=== PATIENT | female | born 1980 | race Caucasian/White ===

== ENCOUNTER 2021-02-14 20:17 | Inpatient (IN) | payer OTHER ==
[2021-02-15] MEDS ORDERED: BUTORPHANOL TARTRATE 1 MG/ML VIAL IVPB ONE (02:32)
[2021-02-15] MEDS ORDERED: PROMETHAZINE HCL 25 MG/1 ML VIAL IVPUSH ONE (02:32)
[2021-02-15] MEDS ORDERED: ELECTROLYTE-148 SOLN 1,000 ML IV SCH (02:45)
[2021-02-15 03:04] LABS: BASO % 0.3 % (0-2.0); EOS % 0.5 % (0-4.5); HEMATOCRIT 35.9 % (32.4-45.2); HEMOGLOBIN 12.6 GM/dL (10.7-15.3); LYMPH % 21.1 % (8-40); MCH 33.8 pg (25.7-33.7); MCHC 35.2 g/dl (32.0-36.0); MEAN CELL VOLUME 95.9 fl (80-96); MEAN PLT VOLUME 9.4 fl (7.5-11.1); MONO % 5.3 % (3.8-10.2); NEUT % 72.8 % (42.8-82.8); PLATELET COUNT 167 10^3/uL (134-434); RBC 3.74 M/mm3 (3.60-5.2); RDW 13.5 % (11.6-15.6); WHITE BLOOD COUNT 6.6 K/mm3 (4.0-10.0)
[2021-02-15 03:12] LABS: INR 0.91 (0.83-1.09)
[2021-02-15 03:15] LABS: ACTIVATED PTT 30.6 SECONDS (25.2-36.5)
[2021-02-15 03:24] LABS: CALCIUM 8.1 mg/dL (8.5-10.1)
[2021-02-15 03:25] LABS: BLOOD UREA NITROGEN 9.8 mg/dL (7-18)
[2021-02-15 03:35] LABS: CREATININE 0.5 mg/dL (0.55-1.3)
[2021-02-15 04:23] VITALS: BMI 27.0
[2021-02-15] MEDS ORDERED: OXYTOCIN 30 UNITS in 0.9% NS 30 UNIT/500 ML INFUS.BAG IVPB SCH (05:00)
[2021-02-15 07:09] LABS: COCAINE, UR NEGATIVE (NEGATIVE); METHADONE, UR NEGATIVE (NEGATIVE); URINE BENZODIAZEPINES NEGATIVE (NEGATIVE)
[2021-02-15 07:10] LABS: OPIATES, URI NEGATIVE (NEGATIVE); PHENCYCLIDINE,URINE NEGATIVE (NEGATIVE); URINE BARBITURATES NEGATIVE (NEGATIVE)
[2021-02-15 07:15] LABS: URINE AMPHETAMINES NEGATIVE (NEGATIVE)
[2021-02-15] MEDS ORDERED: AMPICILLIN SODIUM 2 GM VIAL ONE (13:55)
[2021-02-15] MEDS ORDERED: AMPICILLIN - 2 GM in SODIUM CHLORIDE 100 ML IVPB ONE (14:00)
[2021-02-15] MEDS ORDERED: BUTORPHANOL TARTRATE 2 MG/ML VIAL ONE (15:09)
[2021-02-15] MEDS ORDERED: PROMETHAZINE HCL 25 MG/1 ML VIAL ONE (15:09)
[2021-02-15] MEDS ORDERED: AMPICILLIN - 1 GM in SODIUM CHLORIDE 100 ML IVPB SCH (18:00)
[2021-02-15] MEDS ORDERED: AMPICILLIN SODIUM 1 GM VIAL ONE (18:02)
[2021-02-15] MEDS ORDERED: LIDOCAINE HCL 1% PRESERVATIVE FREE - 30ML VIAL ONE (19:30)
[2021-02-15] MEDS ORDERED: OXYTOCIN 20 UNITS in 0.9% NS 20 UNIT/1,000 ML INFUS.BAG IV ONE (19:30)
[2021-02-15] MEDS ORDERED: OXYTOCIN 20 UNITS in 0.9% NS 20 UNIT/1,000 ML INFUS.BAG IV SCH (21:15)
[2021-02-15] MEDS ORDERED: METHYLERGONOVINE MALEATE 0.2 MG/1 ML AMP IM PRN (21:15)
[2021-02-15] MEDS ORDERED: WITCH HAZEL 50% (TUCKS) 40 PAD/JAR PAD TP PRN (21:15)
[2021-02-15] MEDS ORDERED: BENZOCAINE 28 GM HEMORRHOIDAL OINTMENT TP PRN (21:15)
[2021-02-15] MEDS ORDERED: BISACODYL 10 MG SUPP.RECT RC PRN (21:15)
[2021-02-15] MEDS ORDERED: ACETAMINOPHEN 325 MG TABLET (FP) PO PRN (21:15)
[2021-02-15] MEDS ORDERED: IBUPROFEN 600 MG TABLET (FP) PO PRN (21:15)
[2021-02-15] MEDS ORDERED: BENZOCAINE 20% 57 GM BOTTLE TP PRN (21:15)
[2021-02-15 21:36] LABS: CORD HCO3 18.8 mmHg (20-29); CORD PCO2 43.3 mmHg (30-78); CORD pH 7.256 (7.14-7.44)
[2021-02-15 21:38] LABS: CORD BASE EXCESS -7.9 mmol/L (0-2); CORD HCO3 17.4 mmHg (20-29); CORD PCO2 35.4 mmHg (30-78); CORD pH 7.31 (7.14-7.44)
[2021-02-15] MEDS: MISOPROSTOL 25 MCG TABLET (COMPOUNDED BY PHARMACY) PO SCH (23:34)
[2021-02-16 08:23] LABS: BASO % 0.2 % (0-2.0); HEMATOCRIT 36.4 % (32.4-45.2); HEMOGLOBIN 12.7 GM/dL (10.7-15.3); LYMPH % 8.4 % (8-40); MCHC 34.9 g/dl (32.0-36.0); MEAN CELL VOLUME 97.4 fl (80-96); MEAN PLT VOLUME 9.9 fl (7.5-11.1); NEUT % 86.4 % (42.8-82.8); PLATELET COUNT 190 10^3/uL (134-434); RBC 3.74 M/mm3 (3.60-5.2); RDW 13.3 % (11.6-15.6); WHITE BLOOD COUNT 15.7 K/mm3 (4.0-10.0)
[2021-02-16] MEDS: FERROUS SO4 325 MG TABLET (FP) PO SCH ×2 (08:57→18:19)
[2021-02-16] MEDS: PRENATAL VITAMINS W/ FOLIC ACID TABLET (FP) PO SCH (09:08)
[2021-02-16 21:23] VITALS: PULSE 61
[2021-02-16] MEDS ORDERED: SENNOSIDES/DOCUSATE COMBO (SENNA PLUS) TABLET (UD) PO PRN (22:00)
[2021-02-17] MEDS: FERROUS SO4 325 MG TABLET (FP) PO SCH (08:15)
[2021-02-17 08:55] VITALS: BP 106/72; TEMP 98.1
[2021-02-17] MEDS: PRENATAL VITAMINS W/ FOLIC ACID TABLET (FP) PO SCH (10:05)
[2021-02-18 14:00] LABS: POC NITRAZINE NEG
[2021-02-18 14:01] LABS: POC NITRAZINE POS
== END 2021-02-17 12:30 | disposition home or self-care (01) | DRG 560 ==
LOC: JDEL 20:17 → JLDR 02-15 00:50 → J3W 02-15 22:17
PROVIDERS: ADMIT Obstetrics & Gynecology; ATTEND Obstetrics & Gynecology
PROC: 10E0XZZ Delivery of Products of Conception, External Approach (ICD-10-PCS; principal; 2021-02-15)
DX: O42.02 Full-term premature rupture of membranes, onset of labor within 24 hours of rupture (principal); O24.420 Gestational diabetes mellitus in childbirth, diet controlled; Z3A.37 37 weeks gestation of pregnancy; Z37.0 Single live birth
CPT/HCPCS: 36415; 36600; 59409; 76819-TC; 80048; 80307; 82803; 82962; 83986-QW; 85025; 85610; 85730; 86762; 86780; 86850; 86900; 86901; 87340; C9803; U0003; U0005